=== PATIENT | female | born 1945 | race Caucasian/White ===

== ENCOUNTER → 2023-05-13 09:59 | Outpatient (REF) | payer OTHER, SELFPAY | LOC: RAD 09:59 | PROVIDERS: ATTENDING PHYSICIAN Physician Assistant; FAMILY PHYSICIAN Family Medicine | DX: R13.10 Dysphagia, unspecified (principal) | CPT/HCPCS: 74221 ==

== ENCOUNTER 2023-08-06 06:23 | Day surgery (SDC) | payer OTHER, SELFPAY ==
[2023-08-06] VITALS (7 sets, daily range): BP systolic 134–147; BP diastolic 65–102; BMI 28.9
--- NOTE | 2023-08-06 14:26 | PTCARENOTE ---
Report given to [place] MCINTOSH.
== END 2023-08-06 17:55 | disposition home or self-care (01) ==
LOC: SDS 06:23
PROVIDERS: ATTENDING PHYSICIAN Internal Medicine Gastroenterology
DX: K57.30 Diverticulosis of large intestine without perforation or abscess without bleeding (principal); Q43.8 Other specified congenital malformations of intestine; K56.2 Volvulus; K64.8 Other hemorrhoids; R19.7 Diarrhea, unspecified; Q39.9 Congenital malformation of esophagus, unspecified; K44.9 Diaphragmatic hernia without obstruction or gangrene; K31.89 Other diseases of stomach and duodenum; R13.10 Dysphagia, unspecified
CPT/HCPCS: 45380; 43239; 88305; 88342

== ENCOUNTER → 2025-01-24 13:08 | Outpatient (REF) | payer OTHER, SELFPAY | LOC: HWRAD 13:08 | PROVIDERS: ATTENDING PHYSICIAN Nurse Practitioner Adult Health | DX: M25.512 Pain in left shoulder (principal) | CPT/HCPCS: 73030 ==

== ENCOUNTER → 2025-01-30 14:22 | Outpatient (REF) | payer OTHER, SELFPAY ==
[2025-01-30 19:26] LABS: Body Fluid Second Tech FB
== END ==
LOC: CLAB 14:22
PROVIDERS: ATTENDING PHYSICIAN Student in an Organized Health Care Education/Training Program
DX: Z96.612 Presence of left artificial shoulder joint (principal)
CPT/HCPCS: 36415; 87015; 87070; 87075; 87205; 89051; 89060

== ENCOUNTER → 2025-02-02 13:58 | Outpatient (REF) | payer OTHER, SELFPAY | LOC: HWRAD 13:58 | PROVIDERS: ATTENDING PHYSICIAN Student in an Organized Health Care Education/Training Program; FAMILY PHYSICIAN Nurse Practitioner Adult Health | DX: Z96.612 Presence of left artificial shoulder joint (principal) | CPT/HCPCS: 73200 ==

== ENCOUNTER 2025-03-13 09:35 | Inpatient (IN) | payer OTHER, SELFPAY ==
--- NOTE | 2025-02-23 10:39 | CM ---
Demographics: confirmed
Living situation: lives with
Support Person Post Operatively:
History of
VN: Micha and ROLAND, not currently on service
SNF: [facility]
Outpatient: N/A
Has patient purchased required equipment: yes, patient has a walker, rollator and nocturnal oxygen ( Patient's does not know company.
PCP: [facility]
Pharmacy: [facility]
Post Operative Discharge Plan: Pending PT evaluation. Patient expressed preference for home with VN.
[2025-02-27 11:01] LABS: Hematocrit 34.3 % (37.0-47.0); Hemoglobin 11.3 g/dL (12.0-16.0); Mean Corp Hgb Conc. 32.9 g/dL (33.0-37.0); Mean Corpuscular Volume 102.4 fL (81.0-99.0); Platelet Count 291 10^3/uL (130-400); Red Cell Dist. Width 13.7 % (11.5-14.5)
[2025-02-27 11:24] LABS: Glycohemoglobin (HgbA1c) 5.6 % (4.0-5.9)
[2025-02-27 11:30] LABS: ALT (SGPT) < 10 U/L (0-35); AST (SGOT) 27 U/L (14-36); Albumin 4.4 g/dl (3.5-5.0); Alkaline Phosphatase 60 U/L (38-126); Blood Urea Nitrogen 35 mg/dl (7-17); Calcium 10.8 mg/dl (8.4-10.2); Carbon Dioxide 28 mmol/L (22-30); Chloride 100 mmol/L (98-107); Glucose 119 mg/dl (70-99); Sodium 134 mmol/L (135-145); Total Protein 6.8 g/dl (6.3-8.2); eGFR 42.09
[2025-02-27 11:36] LABS: Potassium 4.8 mmol/L (3.5-5.1)
[2025-02-27 13:23] LABS: Iron 118 ug/dl (37-170)
--- NOTE | 2025-02-27 13:31 | W.PN.UPDATE ---
Update Note
Progress Note Update
mild ALECAI on today's labs w/ reported proteinuria--Nephrology appt. made 03/06/25- aware
[2025-02-27 13:32] LABS: Total Iron Binding Capacity 394 ug/dl (265-497)
[2025-02-27 13:55] LABS: Ferritin 95.5 ng/ml (11.1-264.0)
[2025-02-27 14:10] LABS: Vitamin B12 784 pg/ml (239-931)
[2025-02-28 19:57] LABS: Vitamin D, 25-OH*** 44.9 ng/mL (30-80)
--- NOTE | 2025-03-09 15:04 | CM ---
offshore wind operations manager reached out to patient and spouse, patient is scheduled for admit morning of surgery for revision of left TSA, 03/13/25 patient and spouse report they have an old sling at home and plan on bringing it into the hospital after surgery,
patient may benefit from OT and nursing reached out to [facility].
Plan; To assist with discharge planning.
--- NOTE | 2025-03-12 09:19 | VNURNOTE ---
Addendum entered by Shanon Marquez RN 03/14/25 10:50:
PM-VN liaison met with pt at bedside. Reviewed that pt will receive HH services after DC. Reviewed that we will call her prior to visits. During encounter, patient was eating breakfast, on room air. Watned to order lunch. Call provided.
Referral accepted in [facility].
Original Note:
Chart reviewed. Rec'ed info that pt may need HH services post op. Referral placed in [facility]. Liaison will follow for final DC plan.
[2025-03-13] VITALS (10 sets, daily range): BP systolic 115–134; BP diastolic 63–79; BMI 27.1
[2025-03-13] MEDS: CELEBREX 200 MG PO (10:23)
[2025-03-13] MEDS: TYLENOL 1000 MG PO (10:23)
[2025-03-13] MEDS: NORMOSOL-R/PLASMALYTE-A 1000 IV ×2 (10:24→15:30)
--- NOTE | 2025-03-13 13:26 | W.PN.ORTHO ---
Today's Communication / Plan
-
d/c when stable
Assessment
.
Assessment:
ALECIA pre-op in setting of Meloxicam
--set up w/ nephrology pre-op
--no NSAIDs/Morrow II, renally dose all meds, adequate hydration, BP control
--BMP in am
Parkinson's/balance and gait disturbance
--fall precautions
Asthma-severe persistent
Remote tobacco
Restrictive lung disease
Chronic nocturnal hypoxemia req O2L O2 at hs
PEARSON
--incentive spirometry
--standing order nebs
--O2 at hs
--IV Decadron for inflammation and lung perfusion
--minimize opioids to avoid respiratory suppression
--abx OP Rx ppx
IBS-D
hx microscopic colitis
Anemia
--iron and B12 stores good range
--laxatives prn basis
--PPI GI ppx
--monitor hgb
Plan
.
Surgery / Date: Mechanical failure-L TSA Revision Dr Villa 03/13/25
DVT Prophylaxis: Aspirin
Activity:
Out of bed.
PT/OT
Vital Signs and Labs
.
Vital Signs and Labs:
Lab Results
02/27/25 10:27
02/27/25 10:27
Temp Pulse Resp BP Pulse Ox
97.9 F 62 16 115/65 98
03/13/25 10:12 03/13/25 10:12 03/13/25 10:12 03/13/25 10:12 03/13/25 10:12
--- NOTE | 2025-03-13 14:43 | W.DS.TRANS ---
DC Summary - Coil Winder Hand
-
Discharge Instructions:
Sleep Apnea Risk Low
Discharge Diagnosis/Procedures L reverse TSA Revision Dr Villa 03/13/25
Diet As tolerated
Activity No strenuous activity,With assistance,With
Walker
Driving Restrictions No driving
Others Tests bone density outpatient
Other Services VN,PT,OT
Instructions:
Stand-Alone Forms: Total Shoulder Replacement D/C
Changes to Home Medications: Yes
Discharge Medications:
DC Medications w/original date entered in [facility]
escitalopram oxalate 10 mg tablet 10 mg PO DAILY ##0 01/20/13
pravastatin 20 mg tablet 40 mg PO HS High cholesterol 01/31/18
icosapent ethyl 1 gram capsule (Vascepa) 2 g PO BID High cholesterol 03/15/19
albuterol sulfate 90 mcg/actuation aerosol inhaler (ProAir HFA) 2 puff inhalation R Q6HPRN PRN sob 07/21/22
omeprazole 40 mg capsule,delayed release 40 mg PO QPM Gastrointestinal issue 07/21/22
cholecalciferol (vitamin D3) 50 mcg (2,000 unit) tablet (Vitamin D3) 50 mcg PO DAILY Supplement 08/03/22
diphenoxylate-atropine 2.5 mg-0.025 mg tablet (Lomotil) 1 tab PO DAILYPRN PRN diarrhea 08/03/22
naratriptan 1 mg tablet 1 mg PO DAILYPRN PRN migraine 08/03/22
conjugated estrogens 0.625 mg/gram vaginal cream (Premarin) 0.625 mg vaginal TUFR Hormonal Agent 03/02/23
furosemide 20 mg tablet 20 mg PO DAILYPRN PRN fluid retention 03/02/23
propranolol 40 mg tablet 40 mg PO DAILY Blood pressure 03/02/23
therapeutic multivitamin 1 tab PO DAILY Supplement 03/02/23
Held on 03/13/25. Instructions: Resume on 03/21/25.
azelastine 137 mcg (0.1 %) nasal spray 1 spray intranasal BID Congestion 04/01/23
dextromethorphan-guaifenesin 10 mg-100 mg/5 mL oral syrup 10 ml PO BIDPRN PRN cough 04/01/23
budesonide 0.5 mg/2 mL suspension for nebulization 0.5 mg (2 mL) inhalation R BID Anti-inflammatory #60 mL 04/08/23
ipratropium 0.5 mg-albuterol 3 mg (2.5 mg base)/3 mL nebulization soln 3 ml inhalation R Q4HPRN PRN shortness of breath/wheezing #90 mL 04/08/23
polyethylene glycol 3350 17 gram oral powder packet (HealthyLax) 17 g PO DAILY Constipation #14 ea 04/08/23
clonazepam 0.5 mg tablet 0.5 mg PO TID Mental Health/Anxiety #20 tabs 04/09/23
DayQuil Allergy 12-HR 1 dose PO DAILY Allergies 02/23/25
Focus Factor 1 dose PO BID Supplement 02/23/25
Pepto-Bismol 1 dose PO TID PRN indigestion 02/23/25
acetaminophen-calcium carbonat 500 mg-250 mg tablet 1 - 2 tab PO DAILY PRN headache 02/23/25
benzonatate 100 mg capsule 100 mg PO TID PRN cough 02/23/25
buspirone 30 mg tablet 30 mg PO DAILY Mental Health/Anxiety 02/23/25
carbidopa ER 36.25 mg-levodopa 145 mg capsule,extended release (Rytary) 1 cap PO QID Neurological Condition 02/23/25
coenzyme Q10 100 mg capsule 100 mg PO DAILY Supplement 02/23/25
Held on 03/13/25. Instructions: Resume on 03/21/25.
cyclosporine 0.05 % eye drops in a dropperette (Restasis) 1 drp ophthalmic (eye) Q12H Eye Condition 02/23/25
doxepin 6 mg tablet 6 mg PO HS PRN sleep 02/23/25
famotidine 20 mg tablet 40 mg PO HS Gastrointestinal Issue 02/23/25
fenofibric acid (choline) 135 mg capsule,delayed release 135 mg PO DAILY High Cholesterol 02/23/25
fluticasone propionate 50 mcg/actuation nasal spray,suspension 2 spray intranasal DAILY Allergies 02/23/25
levocetirizine 5 mg tablet (Xyzal) 5 mg PO DAILY Allergies 02/23/25
magnesium glycinate 100 mg (as glycinate) tablet 400 mg PO DAILY Electrolyte Repletion 02/23/25
dexamethasone 4 mg tablet 4 mg PO BID inflammation #6 tabs 02/27/25
doxycycline hyclate 100 mg capsule 100 mg PO BID infection prevention #10 caps 02/27/25
gabapentin 300 mg capsule 300 mg PO HS sleep/pain #10 caps 02/27/25
mupirocin 2 % topical ointment 1 applic topical BID infection prevention #1 tube 02/27/25
ondansetron 4 mg disintegrating tablet 4 mg PO Q6H PRN n/v #20 tabs 02/27/25
Saccharomyces boulardii 250 mg capsule (Florastor) 250 mg PO BID #1 cap 03/13/25
aspirin 325 mg tablet 325 mg PO DAILY blood clot prevention #1 tab 03/13/25
docusate sodium 100 mg capsule (Colace) 100 mg PO BID stool softner #1 cap 03/13/25
lisinopril 10 mg tablet 5 mg (1/2 x 10 mg) PO DAILY Blood pressure #0 tabs 03/13/25
sennosides 8.6 mg tablet (Senokot) 8.6 mg PO BID PRN laxative #2 tabs 03/13/25
tramadol 50 mg tablet 50 mg PO Q6H PRN 1 tab moderate pain, 2 if severe #30 tabs 03/13/25
Home Medication Changes
dexamethasone 4 mg tablet 4 mg PO BID inflammation #6 tabs 02/27/25
doxycycline hyclate 100 mg capsule 100 mg PO BID infection prevention #10 caps 02/27/25
gabapentin 300 mg capsule 300 mg PO HS sleep/pain #10 caps 02/27/25
mupirocin 2 % topical ointment 1 applic topical BID infection prevention #1 tube 02/27/25
ondansetron 4 mg disintegrating tablet 4 mg PO Q6H PRN n/v #20 tabs 02/27/25
Saccharomyces boulardii 250 mg capsule (Florastor) 250 mg PO BID #1 cap 03/13/25
aspirin 325 mg tablet 325 mg PO DAILY blood clot prevention #1 tab 03/13/25
docusate sodium 100 mg capsule (Colace) 100 mg PO BID stool softner #1 cap 03/13/25
lisinopril 10 mg tablet 5 mg (1/2 x 10 mg) PO DAILY Blood pressure #0 tabs 03/13/25
sennosides 8.6 mg tablet (Senokot) 8.6 mg PO BID PRN laxative #2 tabs 03/13/25
tramadol 50 mg tablet 50 mg PO Q6H PRN 1 tab moderate pain, 2 if severe #30 tabs 03/13/25
Pending Results: No
[2025-03-13] MEDS: TYLENOL PO (16:00)
--- NOTE | 2025-03-13 17:00 | PTCARENOTE ---
pt admitted to 2S room 7 from the PACU at 1530. pt drowsy, easily arousable but returns to sleep. pt oriented to room, call and plan of care. admission completed from medical record,as pt unable to answer questions. telemetry placed and
reading SR 60-70's. safe environment maintained. bed locked and in low postion, call in reach. unable to stay awake to take oral medications. care ongoing.
[2025-03-13] MEDS: BUSPAR 30 MG PO (20:14)
[2025-03-13] MEDS: ZYRTEC 5 MG PO (20:14)
[2025-03-13] MEDS: PROTONIX 40 MG PO (20:16)
[2025-03-13] MEDS: ASPIRIN 325 MG PO (20:16)
[2025-03-13] MEDS: LEXAPRO 10 MG PO (20:16)
[2025-03-13] MEDS: BACTROBAN 2% OINTMENT 1 APPLIC NASAL (20:17)
[2025-03-13] MEDS: ANCEF 5 IV (20:17)
[2025-03-13] MEDS: TYLENOL 650 MG PO (20:17)
[2025-03-13] MEDS: COLACE 100 MG PO (20:17)
[2025-03-13] MEDS: MAGNESIUM OXIDE PO (20:37)
[2025-03-13] MEDS: DECADRON 4 MG IV (20:38)
[2025-03-13] MEDS: ULTRAM 100 MG PO (20:41)
--- NOTE | 2025-03-13 20:55 | PTCARENOTE ---
Upon rounds, pt wide awake eating dinner tray. at bedside. Pt upset about being placed on bedpan. Explained for safety it was the best option to try to void since so drowsy post op. Pt verbalized frustration, emotional support provided.
When finished dinner tray assisted to BSC x2. Pt already incontinent of moderate amount of urine. No void on BSC. All scheduled medications administered as pt more awake. PRN tramadol provided for 10/10 L shoulder pain. NV check WNL.
Continuous SpO2 not reading, changed to monitor on L ear, excellent pleth, SpO2 >95% on 2L. Plan of care discussed. Call ray w/in reach. Safe environment maintained.
[2025-03-13] MEDS: DUONEB 3 ML INH (21:20)
[2025-03-13] MEDS: PULMICORT 0.5 MG INH (21:20)
[2025-03-13] MEDS: PRAVACHOL 40 MG PO (22:45)
[2025-03-13] MEDS: RESTASIS 0.05% OPHTHALMIC EMULSION 1 DROPS OPHTH (22:45)
--- NOTE | 2025-03-13 23:55 | PTCARENOTE ---
Addendum entered by Dyan Riojas RN 03/14/25 04:17:
Pt SpO2 dropped to 77% (excellent pleth observed) when OOB --> BSC. Denies respiratory distress. Deep breathing encouraged, SpO2 returned to high 90s upon return to bed.
Original Note:
Pt OOB --> BSC w/assist x2. Small void, approximately 100 mL, yellow urine. PVR bladder scan = 564 mL. TREE TRIMMING LINE TECHNICIAN covering house notified and electronic orders received for bladder scan/straight cath per algorithm, and UA reflex to culture. Pt bladder
scanned using sterile technique for 600 mL clear yellow urine, tolerated well, specimen sent.
[2025-03-14] VITALS (8 sets, daily range): BP systolic 115–145; BP diastolic 63–85; PULSE 111–145; O2SAT 91–94
[2025-03-14] MEDS: TYLENOL 650 MG PO ×3 (00:11→12:07)
[2025-03-14 00:33] LABS: Urine Character Clear (Clear)
[2025-03-14 00:57] LABS: Urine Squamous Cell 0-2 /LPF (Few); Urine Urothelial Cell 0-2 /LPF (FEW)
[2025-03-14 00:58] LABS: Urine Red Blood Cell 0-2 /HPF (0-2)
[2025-03-14] MEDS: ANCEF 5 IV (04:02)
--- NOTE | 2025-03-14 04:14 | PTCARENOTE ---
Pt observed to be snoring upon hourly rounds. Brief periods of short apnea observed. Arouses to voice, appears to fall back to sleep quickly. States 'my arm hurts' but then back to snoring. No change in NV checks. SpO2 > 97% on 2L O2. Call
ray w/in reach.
[2025-03-14] MEDS: TYLENOL PO (04:20)
[2025-03-14] MEDS: ULTRAM 50 MG PO (06:31)
--- NOTE | 2025-03-14 06:35 | PTCARENOTE ---
Pt angry that is in pain (this RN in another room administering medication) Verbalizes 10/10 L shoulder pain, tearful. Went to administer ordered PRN dilaudid, pt stopped RN when stated what was to be given stating 'I can't have that, I have an
allergy'. Hydromorphone listed as allergy on pt record. Too soon for PRN tramadol 100 mg (severe pain). CONCRETE MIXER TRUCK DRIVER covering house contacted regarding situation. Instructed to give 50 mg of tramadol at this time to patient (refer to MAR).
Pt also w/no void since last straigh cathed, Bladder scanned for 404 mL. Straight cathed using sterile technique for 500 mL yellow urine, tolerated well. Call ray w/in reach. Safe environment maintained.
[2025-03-14 08:04] LABS: Blood Urea Nitrogen 20 mg/dl (7-17); Calcium 9.7 mg/dl (8.4-10.2); Carbon Dioxide 26 mmol/L (22-30); Chloride 101 mmol/L (98-107); Glucose 115 mg/dl (70-99); Potassium 4.9 mmol/L (3.5-5.1); Sodium 134 mmol/L (135-145)
[2025-03-14] MEDS: DUONEB 3 ML INH ×2 (08:09→19:09)
[2025-03-14] MEDS: PULMICORT 0.5 MG INH ×2 (08:09→19:09)
[2025-03-14 08:12] LABS: Estimated Creatinine Clearance 41 ml/min; eGFR > 60.00
[2025-03-14] MEDS: BACTROBAN 2% OINTMENT 1 APPLIC NASAL ×2 (08:49→20:28)
[2025-03-14] MEDS: BUSPAR 30 MG PO (08:50)
[2025-03-14] MEDS: ASPIRIN 325 MG PO (08:50)
[2025-03-14] MEDS: RESTASIS 0.05% OPHTHALMIC EMULSION 1 DROPS OPHTH ×2 (08:51→20:30)
[2025-03-14] MEDS: COLACE 100 MG PO ×2 (08:51→20:29)
[2025-03-14] MEDS: MIRALAX 17 GRAMS PO (08:51)
[2025-03-14] MEDS: TRICOR 48 MG PO (08:51)
[2025-03-14] MEDS: PROTONIX 40 MG PO (08:53)
[2025-03-14] MEDS: MAGNESIUM OXIDE 400 MG PO (08:54)
[2025-03-14] MEDS: DECADRON 4 MG IV ×2 (08:55→20:29)
[2025-03-14] MEDS: LEXAPRO 10 MG PO (08:55)
[2025-03-14] MEDS: ZYRTEC 5 MG PO (08:55)
[2025-03-14] MEDS: FLUSH (NSS) 2 FLUSH IV (08:56)
[2025-03-14] MEDS: FLOMAX 0.4 MG PO (09:00)
--- NOTE | 2025-03-14 09:08 | CM ---
Addendum entered by Ayanna Camejo 03/14/25 15:56:
Still waiting on determination from patient's insurance on Auth for [place] acute rehab.
Addendum entered by Ayanna Camejo 03/14/25 12:13:
Auth submitted to regional team at [facility] for Auth for acute rehab at [facility], .
Addendum entered by Ayanna Camejo 03/14/25 11:09:
fast food services manager was contacted by PT/OT and recommendation is for possible acute rehab kris'joleen cline, casework specialist met with patient and she is agreeable to [place] acute rehab and [facility] son casework specialist will send referrals to both, patient may
benefit from acute rehab at [facility], patient with Parkinson, needed to be straight cath twice for urinary retention, needs pain mgt, PT/OT.
Plan; Acute rehab at [facility] v's [facility] cline.
Original Note:
Chart reviewed and casework specialist met with patient this am and patient to return to home with spouse when stable and [facility], patient has nocturnal oxygen in home, she does not know name of supplier.
Plan; Home with spouse and [facility] when stable.
[2025-03-14] MEDS: MONUROL 3 GM PO (13:28)
--- NOTE | 2025-03-14 14:55 | W.PN.ORTHO ---
Today's Communication / Plan
-
Await urine culture results.
Continue to monitor voids.
Watch oxygen, renal function closely w/ switch in pain meds.
D/c when clinically stable.
Assessment
.
Distal Motor Intact: Yes
Dressing:
Clean, dry and intact.
Assessment:
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
DVT prophylaxis - ASA, b/l venous foot pumps
Pain control - did tolerate Tylenol with Codeine previously so will switch
- IV Morphine in replace of IV Dilaudid for breakthru pain prn d/t reported ADR
Urinary frequency and retention - likely in setting of UTI (UA + nitrates, WBCs, presence of bacteria)
- Empiric Monurol x1
- Daily Flomax. Consider BID dose
- Of note, renal function stable. Trend
- Monitor voids. Voiding small amounts of incontinent urine at present. Bladder scan/straight cath prn
ALECIA pre-op in setting of Meloxicam
-- set up w/ nephrology pre-op
-- no NSAIDs/Morrow II, renally dose all meds, adequate hydration, BP control
-- Trend BMP
Parkinson's/balance and gait disturbance
-- fall precautions
Asthma-severe/persistent
Remote tobacco
Restrictive lung disease
Chronic nocturnal hypoxemia req 2L O2 at hs and reportedly 2L during daytime prn
PEARSON
--incentive spirometry
--standing order nebs
--O2 at hs and during daytime prn
--IV Decadron for inflammation and lung perfusion
--minimize opioids as able to avoid respiratory suppression
--abx OP Rx ppx
IBS-D
hx microscopic colitis
Anemia
--iron and B12 stores good range
--laxatives prn basis
--PPI GI ppx
--non-invasive hgb 13.4 POD 1
PT/OT recommending SNF vs acute rehab. Physiatry has been consulted.
Plan
.
Surgery / Date: L Reverse TSA Revision Dr Villa 03/13/25
DVT Prophylaxis: Aspirin
Activity:
Out of bed.
PT/OT
Discharge Plan: SNF (vs rehab )
Subjective
.
.:
Patient examined resting in her chair.
Reportedly high levels of pain when asked; however, appears comfortable and sleeps if undisturbed.
Voiding small, frequent amounts of urine post-op. Bladder scans demonstrate retention. Urine culture pending.
PT/OT recommending acute rehab vs SNF
Vital Signs and Labs
.
Vital Signs and Labs:
Lab Results
02/27/25 10:27
03/14/25 07:19
Temp Pulse Resp BP Pulse Ox
98.2 F 130 18 109/58 90
03/14/25 11:15 03/14/25 13:29 03/14/25 11:15 03/14/25 13:29 03/14/25 11:15
Non-invasive Hgb result: 13.4
Physical Exam
-
HEENT: No pallor, cyanosis, or jaundice. Throat clear.
NECK: Supple. No JVD.
RESPIRATORY: Diminished breath sounds throughout.
CVS: S1, S2 normal. RRR.�
ABDOMEN: Soft, non-tender. No distension.
EXTREMITIES: Able to wiggle fingers b/l. Good loom changer/radial pulses b/l. Strength equal, no calf pain with palpation/dorsiflexion. Calves soft.
STAPLE CUTTER: AOx3. No focal deficits. shank maker grossly intact
[2025-03-14] MEDS: NON-FORMULARY ITEM PO ×4 (16:29→16:30)
[2025-03-14] MEDS: NON-FORMULARY ITEM 1 CAP PO ×3 (16:30→22:20)
[2025-03-14] MEDS: TYLENOL #3 2 TABLET PO (16:31)
--- NOTE | 2025-03-14 21:00 | PTCARENOTE ---
Pt ST via telemetry. 110s up to 130s with activity. Reports palpitations. Daily dose of propanolol not administered 2/2 SBP did not meet parameters. NURSING PROGRAM DIRECTOR covering house contacted, made aware of HR and pt complaint. No new orders received at
this time.
[2025-03-14] MEDS: PEPCID 20 MG PO (22:20)
[2025-03-14] MEDS: PRAVACHOL 40 MG PO (22:20)
--- NOTE | 2025-03-14 22:40 | PTCARENOTE ---
Pt expressed urge to void. Assisted to BSC x1, unsteady. Unable to void. Bladder scanned for 641 mL. COMBINATION WELDER APPRENTICE covering contacted regarding ongoing need for intermittent straight cath. Electronic orders received to place camarillo catheter. 14F [place]
placed using sterile technique, pt tolerated well. Immediate return of clear yellow urine. Stat lock in place.
[2025-03-15] VITALS (8 sets, daily range): BP systolic 123–159; BP diastolic 69–88; PULSE 116; O2SAT 96
[2025-03-15] MEDS: TYLENOL #3 2 TABLET PO ×2 (04:42→14:26)
[2025-03-15] MEDS: PULMICORT 0.5 MG INH ×2 (07:50→19:18)
[2025-03-15] MEDS: DUONEB 3 ML INH ×2 (07:50→19:19)
--- NOTE | 2025-03-15 08:33 | CM ---
Call placed to insurance to check on approval, no Auth yet for acute rehab at [facility].
Plan; To follow up with patient's insurance for acute for acute rehab.
[2025-03-15] MEDS: LEXAPRO 10 MG PO (09:46)
[2025-03-15] MEDS: BUSPAR 30 MG PO (09:46)
[2025-03-15] MEDS: FLOMAX 0.4 MG PO (09:52)
[2025-03-15] MEDS: ASPIRIN 325 MG PO (09:52)
[2025-03-15] MEDS: COLACE 100 MG PO ×2 (09:52→20:10)
[2025-03-15] MEDS: RESTASIS 0.05% OPHTHALMIC EMULSION 1 DROPS OPHTH ×2 (09:52→20:15)
[2025-03-15] MEDS: MIRALAX 17 GRAMS PO (09:52)
[2025-03-15] MEDS: ZYRTEC 5 MG PO (09:53)
[2025-03-15] MEDS: NON-FORMULARY ITEM 1 CAP PO ×5 (09:53→21:58)
[2025-03-15] MEDS: PROTONIX 40 MG PO (09:53)
[2025-03-15] MEDS: DECADRON 4 MG IV ×2 (09:54→20:15)
[2025-03-15] MEDS: TRICOR 48 MG PO (09:54)
[2025-03-15] MEDS: MAGNESIUM OXIDE 400 MG PO (09:54)
[2025-03-15] MEDS: LASIX 10 MG IV ×2 (16:21→18:36)
--- NOTE | 2025-03-15 16:39 | W.PN.ORTHO ---
Today's Communication / Plan
-
d/c when stable
Assessment
.
Distal Motor Intact: Yes
Dressing:
Clean, dry and intact.
Assessment:
SOB w/ tachypnea and tachycardia this am POD#2--chest discomfort on inspiration+intense calf pain w/ palpation
--CT/PE chest and venous duplex negative for clot
--tachycardia most likely exacerbated by nebs-d/c propanolol given asthma and change to Diltiazem
--atelectasis and possible infiltrate noted on CT-continue incentive and abx ppx
--EKG w/ possible anterior infarct vs possible breast attenuation
--troponin 0.032 mildly elevated-repeat q6h
--currently breathing improved with lung expansion/sitting in [id number] baseline on 2L O2 sats 97%
--BNP trending slightly higher then her typical range-change home Lasix to 20mg IV dosing and continue Midodrine to avoid orthostasis
--discussed with cardiology -EKG at baseline with poor R wave progression
--troponin mild elevation not of concern and historically trends higher in setting of asthma exacerbation
Asthma-severe persistent
Remote tobacco
Restrictive lung disease
Chronic nocturnal hypoxemia req O2L O2 at hs
PEARSON
--incentive spirometry
--standing order nebs
--O2 at hs
--IV Decadron for inflammation and lung perfusion
--minimize opioids to avoid respiratory suppression
--abx OP Rx ppx
Hyponatremia
---Lasix + fluid restrict-check urine sodium/osmolality--BMP in am
ALECIA pre-op in setting of Meloxicam
--set up w/ nephrology pre-op
--no NSAIDs/Morrow II, renally dose all meds, adequate hydration, BP control
--BMP in am
Parkinson's/balance and gait disturbance
--fall precautions
IBS-D
hx microscopic colitis
Anemia
--iron and B12 stores good range
--laxatives prn basis
--PPI GI ppx
--monitor hgb
Plan
.
Surgery / Date: L Reverse TSA Revision Dr Villa 03/13/25
DVT Prophylaxis: Aspirin
Activity:
Out of bed.
PT/OT
Discharge Plan: Rehab
Subjective
.
.:
Patient resting comfortably.
Vital Signs and Labs
.
Vital Signs and Labs:
Lab Results
02/27/25 10:27
Temp Pulse Resp BP Pulse Ox
97.7 F 112 18 141/83 97
03/15/25 15:50 03/15/25 14:31 03/15/25 14:31 03/15/25 14:31 03/15/25 14:31
Non-invasive Hgb result: 9.2
Physical Exam
-
HEENT: No pallor, cyanosis, or jaundice. Throat clear.
NECK: Supple. No JVD.
RESPIRATORY: tachypneic Lungs clear to auscultation.
CVS: S1, S2 normal. RRR.� No murmur, rub or gallop.
ABDOMEN: Soft, non-tender. No distension. BS+/normal.
EXTREMITIES: strength equal, no calf pain with palpation
IMAGING ASSISTANT: AOx3. No focal deficits. patch machine operator grossly intact
[2025-03-15 17:06] LABS: Troponin I 0.032 ng/ml
[2025-03-15 17:15] LABS: ALT (SGPT) < 10 U/L (0-35); AST (SGOT) 26 U/L (14-36); Albumin 3.6 g/dl (3.5-5.0); Alkaline Phosphatase 64 U/L (38-126); Blood Urea Nitrogen 24 mg/dl (7-17); Calcium 9.2 mg/dl (8.4-10.2); Carbon Dioxide 26 mmol/L (22-30); Chloride 96 mmol/L (98-107); Estimated Creatinine Clearance 41 ml/min; Glucose 142 mg/dl (70-99); Potassium 4.8 mmol/L (3.5-5.1); Sodium 129 mmol/L (135-145); Total Protein 5.9 g/dl (6.3-8.2); eGFR > 60.00
[2025-03-15] MEDS: SENOKOT 8.6 MG PO (20:12)
[2025-03-15] MEDS: ULTRAM 50 MG PO (21:57)
[2025-03-15] MEDS: NON-FORMULARY ITEM 1 MG PO (21:59)
[2025-03-15] MEDS: PEPCID 20 MG PO (21:59)
[2025-03-15] MEDS: CARDIZEM 30 MG PO (22:00)
[2025-03-15] MEDS: PRAVACHOL 40 MG PO (22:02)
[2025-03-15] MEDS: ROBITUSSIN AC PO (23:07)
[2025-03-16] VITALS (8 sets, daily range): BP systolic 111–164; BP diastolic 66–86; O2SAT 94
[2025-03-16 00:47] LABS: Troponin I 0.039 ng/ml
[2025-03-16] MEDS: TESSALON PERLES 100 MG PO (00:59)
[2025-03-16] MEDS: ULTRAM 50 MG PO ×3 (03:37→19:48)
[2025-03-16 06:48] LABS: Hematocrit 23.3 % (37.0-47.0); Hemoglobin 8.1 g/dL (12.0-16.0); Mean Corp Hgb Conc. 34.8 g/dL (33.0-37.0); Mean Corpuscular Volume 97.5 fL (81.0-99.0); Nucleated Red Blood Cells % 0 %; Platelet Count 240 10^3/uL (130-400); Red Cell Dist. Width 14.4 % (11.5-14.5)
[2025-03-16 06:58] LABS: Troponin I 0.034 ng/ml
[2025-03-16 07:10] LABS: Blood Urea Nitrogen 24 mg/dl (7-17); Calcium 10.0 mg/dl (8.4-10.2); Carbon Dioxide 30 mmol/L (22-30); Chloride 97 mmol/L (98-107); Estimated Creatinine Clearance 53 ml/min; Glucose 102 mg/dl (70-99); Potassium 4.5 mmol/L (3.5-5.1); Sodium 132 mmol/L (135-145); eGFR > 60.00
[2025-03-16] MEDS: PULMICORT 0.5 MG INH (08:10)
[2025-03-16] MEDS: DUONEB 3 ML INH (08:10)
[2025-03-16] MEDS: MIRALAX 17 GRAMS PO (08:33)
[2025-03-16] MEDS: ASPIRIN 325 MG PO (08:45)
[2025-03-16] MEDS: TRICOR 48 MG PO (08:46)
[2025-03-16] MEDS: ROBITUSSIN AC 5 ML PO ×3 (08:46→23:27)
[2025-03-16] MEDS: RESTASIS 0.05% OPHTHALMIC EMULSION 1 DROPS OPHTH ×2 (08:46→19:49)
[2025-03-16] MEDS: PROTONIX 40 MG PO (08:46)
[2025-03-16] MEDS: LEXAPRO 10 MG PO (08:47)
[2025-03-16] MEDS: BUSPAR 30 MG PO (08:47)
[2025-03-16] MEDS: ZYRTEC 5 MG PO (08:47)
[2025-03-16] MEDS: COLACE 100 MG PO ×2 (08:47→19:48)
[2025-03-16] MEDS: MAGNESIUM OXIDE 400 MG PO (08:47)
[2025-03-16] MEDS: FLOMAX 0.4 MG PO (08:48)
[2025-03-16] MEDS: LASIX 20 MG IV ×2 (08:49→23:27)
[2025-03-16] MEDS: DECADRON 4 MG IV ×2 (08:49→19:49)
[2025-03-16] MEDS: CARDIZEM 30 MG PO ×2 (08:50→19:48)
[2025-03-16] MEDS: NON-FORMULARY ITEM 1 CAP PO ×4 (08:51→23:29)
--- NOTE | 2025-03-16 09:07 | CM ---
Addendum entered by Ayanna Camejo 03/16/25 14:27:
Patient has been approved for 7 days acute rehab, 03/26/25 to 03/23/25, patient is not stable today per physician. Auth [id number]
Addendum entered by Ayanna Camejo 03/16/25 09:23:
Referrals sent to [facility], [facility] and [facility] as back up plan.
Addendum entered by Ayanna Camejo 03/16/25 09:18:
advertising traffic manager reached out to [facility] at [place] and per admissions patient progress is slow and patient would do better at skilled facility will review with team.
Original Note:
Call placed to patient's insurance and social work case manager spoke with Debbie Jacinto at [facility], pending authorization number is [id number], call ref # [id number], social work case manager requested that Regional Team at [employer], expedite Auth
as patient is stable for discharge.
Plan; [facility]ing on Author[facility].
[2025-03-16] MEDS: MILK OF MAGNESIA 30 ML PO (11:57)
--- NOTE | 2025-03-16 14:50 | W.PN.ORTHO ---
Today's Communication / Plan
-
d/c when stable
Assessment
.
Distal Motor Intact: Yes
Dressing:
Clean, dry and intact.
Assessment:
POD#3--Aspiration and cough w/ RLL rhonchi and CT ? PNA--aspiration precautions w/ Fees swallow study ordered and speech consult--continue PPI and tx w/ Zosyn
SOB w/ tachypnea and tachycardia am POD#2--chest discomfort on inspiration+intense calf pain w/ palpation--resolved
--CT/PE chest and venous duplex negative for clot
--tachycardia most likely exacerbated by nebs-d/c propanolol given asthma and change to Diltiazem
--EKG w/ possible anterior infarct reviewed Dr Hernandez-cardiology and at baseline with poor R wave progression
--troponin mildly elevated-repeated q4l-bjixfmpzp trends higher in setting of asthma exacerbation-no CP
--BNP trending slightly higher then her typical range-change home Lasix to 20mg IV dosing and continue Midodrine to avoid orthostasis
Asthma-severe persistent
Remote tobacco
Restrictive lung disease
Chronic nocturnal hypoxemia req O2L O2 at hs
PEARSON
--incentive spirometry
--standing order nebs
--O2 at hs
--IV Decadron for inflammation and lung perfusion
--minimize opioids to avoid respiratory suppression
--abx OP Rx ppx
Anemia
--iron and B12 stores good range
--significant drop in hgb
--transfuse 1UPRBCs-heme test stool given colitis
IBS-D
hx microscopic colitis
GERD
--laxatives prn basis
--PPI GI ppx
Hyponatremia
---Lasix + fluid restrict-check urine sodium/osmolality--BMP in am-sodium improving
Hx ALECIA pre-op in setting of Meloxicam
--set up w/ nephrology pre-op
--no NSAIDs/Morrow II, renally dose all meds, adequate hydration, BP control
--follow BMP
Parkinson's/balance and gait disturbance
--fall precautions
Plan
.
Surgery / Date: L Reverse TSA Revision Dr Villa 03/13/25
DVT Prophylaxis: Aspirin
Activity:
Out of bed.
PT/OT
Discharge Plan: Rehab and SNF
Discharge Information:
Acute rehab/[facility] vs SNF
Subjective
.
.:
Patient resting comfortably.
Vital Signs and Labs
.
Vital Signs and Labs:
Lab Results
03/16/25 06:22
03/16/25 06:22
Temp Pulse Resp BP Pulse Ox
98.2 F 94 20 118/66 93
03/16/25 11:58 03/16/25 12:06 03/16/25 11:58 03/16/25 12:06 03/16/25 12:12
Non-invasive Hgb result: 9.2
Physical Exam
-
HEENT: No pallor, cyanosis, or jaundice. Throat clear.
NECK: Supple. No JVD.
RESPIRATORY: RLL rhonchi
CVS: S1, S2 normal. RRR.� No murmur, rub or gallop.
ABDOMEN: Soft, non-tender. No distension. BS+/normal.
EXTREMITIES: strength equal, no calf pain with palpation
PLASMA CUTTING MACHINE OPERATOR: AOx3. No focal deficits. coil connector repairer grossly intact
[2025-03-16] MEDS: ZOSYN 50 IV ×2 (16:07→23:30)
--- NOTE | 2025-03-16 16:09 | CON.HOSP ---
Consultation
-
Date/Time Consultation Requested: March 15, 2025 @ 1600
Date/Time Consultation Performed: March 15, 2025 @ 1615
Requesting Provider: Marium Cook PA-C
Performing Provider: Fatimah Madrid PA-C / Dr. Abimael Gamez
Reason for Consultation: Post-Op Medical Management
Family Physician
-
Family Physician: RICK Guerin
Chief Complaint
-
Medical Management
History of Present Illness
Patient is 79 y/o female past medical history of Parkinson disease, chronic nocturnal hypoxia, asthma, restrictive lung disease, hypertension, seizure disorder and anxiety who was seen on POD #3 following a revision of previous left shoulder
replacement. Thus far during this hospitalization patient has been started on empiric antibiotics following a episode of aspiration. She has also significant dropped her Hgb for which she is ordered one unit of PRBCs, and has been started on a
fluid restriction for hyponatremia. Hospitalist group was asked to evaluation the patient for continued post-op medical management.
Medical History
Past Medical History
Past Medical History: Reports Other
Additional Past Medical History:
Parkinson's Disease
Chronic Nocturnal Hypoxia
Asthma
Restrictive Lung Disease
Essential Hypertension
Hyperlipidemia
Seizure Disorder
Anxiety/Depression
Past Surgical History: Reports Other
Additional Past Surgical History:
Bilateral Shoulder Replacements
Bilateral Knee Replacements
Cholecystectomy
Section
Social History
Tobacco: Former Smoker
Alcohol: Occasional
Family History
Family History: Reviewed & Not Pertinent
Allergies / Home Medications
Allergies reflects when Allergies were last updated in [facility].
Home Medications with original date entered in [facility] [facility]
Allergy/Medication List:
Allergies
Allergy/AdvReac Type Severity Reaction Status Date / Time
house dust Allergy increases Verified 03/13/25 09:51
asthma
symptoms
hydromorphone Allergy swelling Verified 03/13/25 09:51
and itching
pollen extracts Allergy stuffy Verified 03/13/25 09:51
nose,cough,triggers
asthma
pseudoephedrine HCl (From Allergy hyperactive, Verified 03/13/25 09:51
Sudafed) palpitations
Home Medications
escitalopram oxalate 10 mg tablet 10 mg PO DAILY ##0 01/20/13
pravastatin 20 mg tablet 40 mg PO HS High cholesterol 01/31/18
icosapent ethyl 1 gram capsule (Vascepa) 2 g PO BID High cholesterol 03/15/19
albuterol sulfate 90 mcg/actuation aerosol inhaler (ProAir HFA) 2 puff inhalation R Q6HPRN PRN sob 07/21/22
omeprazole 40 mg capsule,delayed release 40 mg PO QPM Gastrointestinal issue 07/21/22
cholecalciferol (vitamin D3) 50 mcg (2,000 unit) tablet (Vitamin D3) 50 mcg PO DAILY Supplement 08/03/22
diphenoxylate-atropine 2.5 mg-0.025 mg tablet (Lomotil) 1 tab PO DAILYPRN PRN diarrhea 08/03/22
naratriptan 1 mg tablet 1 mg PO DAILYPRN PRN migraine 08/03/22
conjugated estrogens 0.625 mg/gram vaginal cream (Premarin) 0.625 mg vaginal TUFR Hormonal Agent 03/02/23
furosemide 20 mg tablet 20 mg PO DAILYPRN PRN fluid retention 03/02/23
propranolol 40 mg tablet 40 mg PO DAILY Blood pressure 03/02/23
therapeutic multivitamin 1 tab PO DAILY Supplement 03/02/23
Held on 03/13/25. Instructions: Resume on 03/21/25.
azelastine 137 mcg (0.1 %) nasal spray 1 spray intranasal BID Congestion 04/01/23
dextromethorphan-guaifenesin 10 mg-100 mg/5 mL oral syrup 10 ml PO BIDPRN PRN cough 04/01/23
budesonide 0.5 mg/2 mL suspension for nebulization 0.5 mg (2 mL) inhalation R BID Anti-inflammatory #60 mL 04/08/23
ipratropium 0.5 mg-albuterol 3 mg (2.5 mg base)/3 mL nebulization soln 3 ml inhalation R Q4HPRN PRN shortness of breath/wheezing #90 mL 04/08/23
polyethylene glycol 3350 17 gram oral powder packet (HealthyLax) 17 g PO DAILY Constipation #14 ea 04/08/23
clonazepam 0.5 mg tablet 0.5 mg PO TID Mental Health/Anxiety #20 tabs 04/09/23
DayQuil Allergy 12-HR 1 dose PO DAILY Allergies 02/23/25
Focus Factor 1 dose PO BID Supplement 02/23/25
Pepto-Bismol 1 dose PO TID PRN indigestion 02/23/25
acetaminophen-calcium carbonat 500 mg-250 mg tablet 1 - 2 tab PO DAILY PRN headache 02/23/25
benzonatate 100 mg capsule 100 mg PO TID PRN cough 02/23/25
buspirone 30 mg tablet 30 mg PO DAILY Mental Health/Anxiety 02/23/25
carbidopa ER 36.25 mg-levodopa 145 mg capsule,extended release (Rytary) 1 cap PO QID Neurological Condition 02/23/25
coenzyme Q10 100 mg capsule 100 mg PO DAILY Supplement 02/23/25
Held on 03/13/25. Instructions: Resume on 03/21/25.
cyclosporine 0.05 % eye drops in a dropperette (Restasis) 1 drp ophthalmic (eye) Q12H Eye Condition 02/23/25
doxepin 6 mg tablet 6 mg PO HS PRN sleep 02/23/25
famotidine 20 mg tablet 40 mg PO HS Gastrointestinal Issue 02/23/25
fenofibric acid (choline) 135 mg capsule,delayed release 135 mg PO DAILY High Cholesterol 02/23/25
fluticasone propionate 50 mcg/actuation nasal spray,suspension 2 spray intranasal DAILY Allergies 02/23/25
levocetirizine 5 mg tablet (Xyzal) 5 mg PO DAILY Allergies 02/23/25
magnesium glycinate 100 mg (as glycinate) tablet 400 mg PO DAILY Electrolyte Repletion 02/23/25
dexamethasone 4 mg tablet 4 mg PO BID inflammation #6 tabs 02/27/25
doxycycline hyclate 100 mg capsule 100 mg PO BID infection prevention #10 caps 02/27/25
gabapentin 300 mg capsule 300 mg PO HS sleep/pain #10 caps 02/27/25
mupirocin 2 % topical ointment 1 applic topical BID infection prevention #1 tube 02/27/25
ondansetron 4 mg disintegrating tablet 4 mg PO Q6H PRN n/v #20 tabs 02/27/25
Saccharomyces boulardii 250 mg capsule (Florastor) 250 mg PO BID #1 cap 03/13/25
aspirin 325 mg tablet 325 mg PO DAILY blood clot prevention #1 tab 03/13/25
docusate sodium 100 mg capsule (Colace) 100 mg PO BID stool softner #1 cap 03/13/25
lisinopril 10 mg tablet 5 mg (1/2 x 10 mg) PO DAILY Blood pressure #0 tabs 03/13/25
sennosides 8.6 mg tablet (Senokot) 8.6 mg PO BID PRN laxative #2 tabs 03/13/25
tramadol 50 mg tablet 50 mg PO Q6H PRN 1 tab moderate pain, 2 if severe #30 tabs 03/13/25
Review of Systems
-
History Source: Patient
Constitutional: Denies Fever
Respiratory: Reports Cough
Cardiac: Denies Chest Pain
Abdomen/GI: Reports Constipated
Physical Exam
Vital Signs
Vital Signs
Temp Pulse Resp BP Pulse Ox
98.4 F 108 16 144/81 96
03/16/25 15:36 03/16/25 15:36 03/16/25 15:36 03/16/25 15:36 03/16/25 15:36
Physical Exam
General: Well Developed and Well Nourished
HEENT: Anicteric, Moist Mucous Membranes and Oxygen (Nasal Cannula)
Respiratory: Rales (Bilateral bases, slightly greater on right compared to left)
Cardiac: S1/S2 and Regular Rhythm
GI: Soft and Non Tender
Musculoskeletal: No Clubbing and No Edema
Skin: Warm and Dry
Neuro: Awake, Alert and Oriented
Psych: Calm
Laboratory Results
-
Laboratory Results
03/16/25 06:22
03/16/25 06:22
Total Bilirubin 0.2 mg/dl (0.2-1.3) 03/15/25 16:37
AST 26 U/L (14-36) 03/15/25 16:37
ALT < 10 U/L (0-35) 03/15/25 16:37
Alkaline Phosphatase 64 U/L (38-126) 03/15/25 16:37
Troponin I 0.034 ng/ml 03/16/25 06:22
Data Reviewed
-
Lab Data: Labs Reviewed
Impression / Plan
-
Acute Post-Op Blood Loss Anemia
-Check iron, ferritin, TIBC, folate, Vit B12
-Transfuse 1 unit PRBCs today
-Recheck Hgb in AM
Hyponatremia
-Sodium level is trending upwards
-Continue fluid restriction
-Continue furosemide
Aspiration Pneumonia
-Continue Zosyn
-Await speech consult
Post-Op Urinary Retention
-Vasquez catheter placed 03/14
-Voiding trial scheduled for 03/17
-Continue tamsulosin
Revision of Left Shoulder Replacement
-Care as per orthopedics
Parkinson's Disease
-Continue carbidopa / levodopa
Chronic Nocturnal Hypoxia
-Continue supplemental oxygen
Asthma / Restrictive Lung Disease
-Continue ipratropium/albuterol neb and Pulmicort neb
Essential Hypertension
-Continue diltiazem
Anxiety/Depression with Benzodiazepine Dependence
-Continue buspirone, escitalopram and doxepin
-Continue clonazepam as prior to admission
DVT Proph: Aspirin
--- NOTE | 2025-03-16 16:49 | VATNOTE ---
no need for midline at this time. One new line placed; coordinated with Kathie MCKEON.
--- NOTE | 2025-03-16 16:52 | W.PN.UPDATE ---
Update Note
Progress Note Update
Attending note.
Patient seen independently
79 y/o woman with a past medical history of:
Parkinson disease,
chronic nocturnal hypoxia,
asthma,
restrictive lung disease,
hypertension,
seizure disorder
anxiety
on POD #3 following a revision of previous left shoulder replacement. Started on empiric antibiotics following a episode of aspiration. Significant dropped her Hgb for which she is ordered one unit of PRBCs. Fluid restriction for hyponatremia.
Hospitalist group was asked to evaluation the patient for continued post-op medical management.
Past Medical History
Parkinson's Disease
Chronic Nocturnal Hypoxia
Asthma
Restrictive Lung Disease
Essential Hypertension
Hyperlipidemia
Seizure Disorder
Anxiety/Depression
Bilateral Shoulder Replacements
Bilateral Knee Replacements
Cholecystectomy
Section
Physical Exam
General: Well Developed and Well Nourished
HEENT: Moist Mucous Membranes on Oxygen (Nasal Cannula)
Respiratory: Rales
Cardiac: S1/S2 and Regular Rhythm
GI: Soft and Non Tender
Neuro: Awake, Alert and Oriented
Psych: Calm
Impression / Plan
1. Acute Post-Op Blood Loss Anemia
-Check iron, ferritin, TIBC, folate, Vit B12
-in process - Transfuse 1 unit PRBCs today
-Recheck Hgb in AM
2. Aspiration Pneumonia
-Continue Zosyn
-Await speech consult
Please see PA note for further details on:
Hyponatremia
Post-Op Urinary Retention
Revision of Left Shoulder Replacement
Parkinson's Disease
Chronic Nocturnal Hypoxia
Asthma / Restrictive Lung Disease
Essential Hypertension
Anxiety/Depression with Benzodiazepine Dependence
DVT Proph: Aspirin
[2025-03-16] MEDS: NON-FORMULARY ITEM PO (17:23)
[2025-03-16 18:02] LABS: Iron 48 ug/dl (37-170)
[2025-03-16 18:11] LABS: Total Iron Binding Capacity 294 ug/dl (265-497)
[2025-03-16 18:43] LABS: Ferritin 83.4 ng/ml (11.1-264.0)
[2025-03-16 18:57] LABS: Vitamin B12 786 pg/ml (239-931)
[2025-03-16 19:30] LABS: Folate 9.1 ng/ml (2.76-20)
[2025-03-16] MEDS: DUONEB INH (20:41)
[2025-03-16] MEDS: PULMICORT INH (20:42)
--- NOTE | 2025-03-16 23:00 | PTCARENOTE ---
Pt tolerated blood transfusion without complications, VSS
[2025-03-16] MEDS: PRAVACHOL 40 MG PO (23:28)
[2025-03-16] MEDS: PEPCID 20 MG PO (23:28)
[2025-03-17 03:05] VITALS: BP 154/95
[2025-03-17] MEDS: ULTRAM 50 MG PO ×4 (03:21→21:45)
[2025-03-17] MEDS: ZOSYN 50 IV ×4 (04:59→21:46)
[2025-03-17 07:05] VITALS: BP 151/92
[2025-03-17 07:31] LABS: Blood Urea Nitrogen 36 mg/dl (7-17); Calcium 10.1 mg/dl (8.4-10.2); Carbon Dioxide 33 mmol/L (22-30); Chloride 90 mmol/L (98-107); Estimated Creatinine Clearance 41 ml/min; Glucose 132 mg/dl (70-99); Potassium 4.5 mmol/L (3.5-5.1); Sodium 131 mmol/L (135-145); eGFR > 60.00
[2025-03-17 07:34] LABS: Hematocrit 30.3 % (37.0-47.0); Hemoglobin 10.5 g/dL (12.0-16.0); Mean Corp Hgb Conc. 34.7 g/dL (33.0-37.0); Mean Corpuscular Volume 95.6 fL (81.0-99.0); Nucleated Red Blood Cells % 0 %; Platelet Count 309 10^3/uL (130-400); Red Cell Dist. Width 15.1 % (11.5-14.5)
[2025-03-17] MEDS: PULMICORT 0.5 MG INH ×2 (07:36→18:02)
[2025-03-17] MEDS: DUONEB 3 ML INH ×2 (07:36→18:02)
[2025-03-17] MEDS: ROBITUSSIN AC 5 ML PO ×3 (09:33→21:45)
[2025-03-17] MEDS: TESSALON PERLES 100 MG PO (09:34)
[2025-03-17] MEDS: RESTASIS 0.05% OPHTHALMIC EMULSION 1 DROPS OPHTH ×2 (09:35→21:45)
[2025-03-17] MEDS: BUSPAR 30 MG PO (09:36)
[2025-03-17] MEDS: ASPIRIN 325 MG PO (09:36)
[2025-03-17] MEDS: CARDIZEM 30 MG PO (09:36)
[2025-03-17] MEDS: ZYRTEC 5 MG PO (09:36)
[2025-03-17] MEDS: PROTONIX 40 MG PO (09:36)
[2025-03-17] MEDS: FLOMAX 0.4 MG PO (09:36)
[2025-03-17] MEDS: COLACE 100 MG PO ×2 (09:36→21:45)
[2025-03-17] MEDS: TRICOR 48 MG PO (09:36)
[2025-03-17] MEDS: DECADRON 4 MG IV (09:38)
[2025-03-17] MEDS: LASIX 20 MG IV (09:39)
[2025-03-17] MEDS: NON-FORMULARY ITEM 1 CAP PO ×5 (09:39→21:47)
[2025-03-17] MEDS: LEXAPRO 10 MG PO (09:41)
[2025-03-17] MEDS: MIRALAX 17 GRAMS PO (09:41)
[2025-03-17] MEDS: MAGNESIUM OXIDE 400 MG PO (09:41)
[2025-03-17 11:05] VITALS: BP 116/77
--- NOTE | 2025-03-17 13:26 | W.PN.HOSP.TC ---
Today's Communication/Plan
-
Assessment / Plan
Assessment / Plan
General: No Apparent Distress, Comfortable and Conversant
HEENT: NormoCephalic, Moist mucous membranes, Atraumatic
Respiratory: Clear and Non Labored Respirations
Cardiac: S1/S2 and Regular Rhythm; No Rub or Gallop
GI: Soft, Non Tender, Non Distended and Normal Bowel Sounds
Musculoskeletal: Mild lower extremity edema, left upper extremity in sling
Skin: Chronic skin changes bilateral lower extremities
: NO Vasquez
Neuro: Awake, Alert, Nonfocal/grossly intact
Psych: Calm and cooperative
Ms. Ewing is a 79-year-old female with a medical history of Parkinson's disease, chronic nocturnal hypoxia, asthma, restrictive lung disease, hypertension, seizure disorder, and anxiety who was hospitalized following revision of her left shoulder
replacement. She was started on antibiotics following an aspiration event. She also had a significant drop in her hemoglobin for which she was transfused 1 unit PRBCs. She was also started on a fluid restriction for hyponatremia. Our hospitalist
service was consulted for medical management during her postoperative care.
Postoperative acute blood loss anemia:
- Hemoglobin dropped to 8.1, was transfused 1 unit PRBCs => hemoglobin 10.5 this morning
- Monitor
Hypertension:
- According to med rec patient takes lisinopril 5 mg daily and propranolol 40 mg daily at home
- Currently holding lisinopril and propranolol due to borderline hypotension
- Unclear why she has been started on diltiazem which can also lower blood pressure
- Appears to have been started on midodrine during this admission which we will continue for now
- Diltiazem discontinued, also transitioned IV Lasix back to oral 20 mg daily for now (Lasix 20 mg every 48 hours or as needed at home)
- Will monitor blood pressure over the next 24 hours and adjust regimen as needed
Aspiration pneumonia:
- CT chest shows possible left lower lobe pneumonia, negative for PE
- Requiring minimal supplemental oxygen, 2 L at most otherwise on room air
- Continue Zosyn
- Aspiration precautions
- [employer] evaluation showing mild oropharyngeal dysphagia likely related to Parkinson's disease
- Recommendations are for regular solids, thin liquids via single sips with chin tuck, medications in pur�e
Acute urinary retention:
- Vasquez removed this morning 03/17
- Will monitor for spontaneous voiding
Hyponatremia:
- Mild with serum sodium 131 this morning, appears chronic per records
- Likely due to Lasix use, possibly side effect of escitalopram which should not be discontinued for mild hyponatremia alone
- Continue fluid restriction, convert Lasix back to home dose of 20 mg p.o. every 48 hours
- Baseline serum sodium appears to be 130-134
- Monitor
Parkinson's disease:
- Continue Sinemet
Chronic nocturnal hypoxia:
- Continue supplemental oxygen via nasal cannula at night/as needed
Asthma, restrictive lung disease:
- Continue scheduled nebulizers
Left shoulder replacement revision:
- Status post OR with Ortho 03/13/2025 reverse total shoulder arthroplasty, tolerated procedure well
- Postoperative care per Ortho team
- On full-strength aspirin daily
Anxiety and depression:
- Continue home buspirone, escitalopram, doxepin, and clonazepam
DVT prophylaxis: Full-strength aspirin per Ortho
Anticipated Discharge: > 48 hours
Subjective/Interval History
-
Date of Service: March 17, 2025
Patient was seen and examined at bedside this morning. No acute events overnight. Hemoglobin improved to 10.5 after 1 unit PRBCs. She is motivated to continue working with physical therapy.
Objective Data
-
Labs:
Laboratory Results
03/17/25
06:10
WBC 9.0
Hgb 10.5 L D
Hct 30.3 L
Plt Count 309 D
Sodium 131 L
Potassium 4.5
Chloride 90 L
Carbon Dioxide 33 H
BUN 36 H
Creatinine 0.9
Glucose 132 H
Calcium 10.1
Vital Signs:
Vital Signs
Temp Pulse Resp BP Pulse Ox
98.6 F 104 16 116/77 99
03/17/25 11:05 03/17/25 11:05 03/17/25 11:05 03/17/25 11:05 03/17/25 11:05
I&O
03/16/25 03/17/25 03/18/25
06:59 06:59 06:59
Intake Total 1070 / 1070 750 / 750
Output Total 2950 / 2950 3450 / 3450
Balance -1880 / -1880 -2700 / -2700
Review of Systems
-
History Source: Patient
All other systems: Reviewed and negative
Physical Exam
-
General: No Apparent Distress
--- NOTE | 2025-03-17 14:55 | W.PN.ORTHO ---
Today's Communication / Plan
-
79F POD #4 Left shoulder revision RTSA (humeral and glenoid components) performed on 03/13/[address] Villa.
- Appreciate medical team assistance with patient; continue treatment.
- NWB LUE in sling x 4-6 weeks from DOS.
- PT/OT.
- ASA 325mg once daily x 4 weeks for DVT prophylaxis.
- Hgb 8.1 --> 10.5 s/p 1 unit PRBC; continue to monitor.
- Discharge planning; appreciate CM.
- Orthopedic surgery will continue to follow.
Assessment
.
Distal Motor Intact: Yes
Dressing:
Primaseal dressing intact with scant dried bloody drainage.
Elbow, wrist, and hand ROM intact. Shoulder ROM deferred.
Sensation is intact to light touch over the axillary nerve distribution.
Assessment:
POD #4 Left Reverse TSA Revision 03/13/[address] Villa
Plan
.
Surgery / Date: L Reverse TSA Revision Dr Villa 03/13/25
DVT Prophylaxis: Aspirin
Activity:
Out of bed.
PT/OT.
NWB LUE in sling.
Discharge Plan: Rehab and SNF
Discharge Information:
Appreciate CM.
Acute rehab/[facility] vs SNF.
Subjective
.
.:
Patient resting comfortably.
Vital Signs and Labs
.
Vital Signs and Labs:
Lab Results
03/17/25 06:10
03/17/25 06:10
Temp Pulse Resp BP Pulse Ox
98.6 F 84 16 116/77 99
03/17/25 11:05 03/17/25 13:48 03/17/25 11:05 03/17/25 13:48 03/17/25 11:05
Non-invasive Hgb result: 9.2
[2025-03-17 15:05] VITALS: BP 115/70
[2025-03-17] MEDS: PEPCID 20 MG PO (21:44)
[2025-03-17] MEDS: PRAVACHOL 40 MG PO (21:44)
[2025-03-17 22:59] VITALS: BP 138/80
[2025-03-18] MEDS: TESSALON PERLES 100 MG PO ×2 (03:48→10:45)
[2025-03-18] MEDS: ULTRAM 50 MG PO ×3 (03:48→20:10)
[2025-03-18] MEDS: ZOSYN 50 IV (03:49)
[2025-03-18 07:05] VITALS: BP 142/78
[2025-03-18] MEDS: TYLENOL 500 MG PO (07:39)
[2025-03-18] MEDS: ULTRAM 25 MG PO (07:39)
[2025-03-18] MEDS: COLACE PO ×2 (08:00→10:45)
[2025-03-18] MEDS: MIRALAX PO ×2 (08:00→10:46)
[2025-03-18] MEDS: NON-FORMULARY ITEM PO (08:00)
[2025-03-18] MEDS: PULMICORT INH (08:10)
[2025-03-18] MEDS: DUONEB INH (08:10)
[2025-03-18] MEDS: PULMICORT 0.5 MG INH ×2 (08:36→19:40)
[2025-03-18] MEDS: DUONEB 3 ML INH ×2 (08:36→19:40)
[2025-03-18] MEDS: RESTASIS 0.05% OPHTHALMIC EMULSION 1 DROPS OPHTH ×2 (10:42→20:09)
[2025-03-18] MEDS: ROBITUSSIN AC 5 ML PO ×3 (10:42→22:10)
[2025-03-18] MEDS: ZYRTEC 5 MG PO (10:43)
[2025-03-18] MEDS: FLOMAX 0.4 MG PO (10:44)
[2025-03-18] MEDS: MAGNESIUM OXIDE 400 MG PO (10:45)
[2025-03-18] MEDS: LEXAPRO 10 MG PO (10:45)
[2025-03-18] MEDS: TRICOR 48 MG PO (10:45)
[2025-03-18] MEDS: LASIX 20 MG PO (10:45)
[2025-03-18] MEDS: BUSPAR 30 MG PO (10:45)
[2025-03-18] MEDS: ASPIRIN 325 MG PO (10:46)
[2025-03-18] MEDS: PROTONIX 40 MG PO (10:46)
[2025-03-18] MEDS: TYLENOL 650 MG PO (10:46)
[2025-03-18] MEDS: NON-FORMULARY ITEM 1 CAP PO ×4 (10:47→22:10)
[2025-03-18 12:50] VITALS: BP 140/73; PULSE 77; O2SAT 98
--- NOTE | 2025-03-18 12:58 | W.PN.ORTHO ---
Today's Communication / Plan
-
79F POD #5 Left shoulder revision RTSA (humeral and glenoid components) performed on 03/13/[address] Villa.
- Appreciate medical team assistance with patient; continue treatment.
- NWB LUE in sling x 4-6 weeks from DOS.
- PT/OT.
- ASA 325mg once daily x 4 weeks for DVT prophylaxis.
- Hgb 8.1 --> 10.5 03/17/2025 s/p 1 unit PRBC; continue to monitor. Hgb today pending.
- Discharge planning; appreciate CM.
- Orthopedic surgery will continue to follow.
Assessment
.
Distal Motor Intact: Yes
Dressing:
Primaseal dressing intact with scant dried bloody drainage.
Elbow, wrist, and hand ROM intact. Shoulder ROM deferred.
Sensation is intact to light touch over the axillary nerve distribution.
Assessment:
POD #5 Left Reverse TSA Revision 03/13/[address] Villa
Plan
.
Surgery / Date: L Reverse TSA Revision Dr Villa 03/13/25
DVT Prophylaxis: Aspirin
Activity:
Out of bed.
PT/OT.
NWB LUE in sling.
Discharge Plan: SNF
Discharge Information:
Appreciate CM.
Subjective
.
.:
Patient resting comfortably.
Vital Signs and Labs
.
Vital Signs and Labs:
Temp Pulse Resp BP Pulse Ox
97.5 F 96 16 142/78 95
03/18/25 07:05 03/18/25 08:39 03/18/25 08:39 03/18/25 07:05 03/18/25 08:39
Non-invasive Hgb result: 9.2
[2025-03-18 13:44] VITALS: BP 110/59
[2025-03-18 15:05] VITALS: BP 117/64
--- NOTE | 2025-03-18 16:00 | W.PN.HOSP.TC ---
Today's Communication/Plan
-
Assessment / Plan
Assessment / Plan
General: No Apparent Distress, Comfortable and Conversant
HEENT: NormoCephalic, Moist mucous membranes, Atraumatic
Respiratory: Clear and Non Labored Respirations
Cardiac: S1/S2 and Regular Rhythm; No Rub or Gallop
GI: Soft, Non Tender, Non Distended and Normal Bowel Sounds
Musculoskeletal: Mild lower extremity edema, left upper extremity in sling
Skin: Chronic skin changes bilateral lower extremities
: NO Vasquez
Neuro: Awake, Alert, Nonfocal/grossly intact
Psych: Calm and cooperative
Ms. Ewing is a 79-year-old female with a medical history of Parkinson's disease, chronic nocturnal hypoxia, asthma, restrictive lung disease, hypertension, seizure disorder, and anxiety who was hospitalized following revision of her left shoulder
replacement. She was started on antibiotics following an aspiration event. She also had a significant drop in her hemoglobin for which she was transfused 1 unit PRBCs. She was also started on a fluid restriction for hyponatremia. Our hospitalist
service was consulted for medical management during her postoperative care.
Postoperative acute blood loss anemia:
- Hemoglobin dropped to 8.1, was transfused 1 unit PRBCs => hemoglobin 10.5, repeat labs today pending
- Monitor
Hypertension:
- According to med rec patient takes lisinopril 5 mg daily and propranolol 40 mg daily at home
- Currently holding lisinopril and propranolol due to borderline hypotension
- Patient was started on diltiazem for tachycardia which can also lower blood pressure
- Appears to have been started on midodrine during this admission which we will continue for now
- Diltiazem discontinued, also transitioned IV Lasix back to oral 20 mg daily for now (Lasix 20 mg every 48 hours or as needed at home)
- Continue to hold home lisinopril and propranolol, hopefully can discontinue midodrine, however in the meantime can continue midodrine with holding parameters (hold for SBP greater than 120), reasonable to discharge on this regimen and monitor in
the outpatient setting with adjustments as needed
Aspiration pneumonia:
- CT chest shows possible left lower lobe pneumonia, negative for PE
- Requiring minimal supplemental oxygen, 2 L at most otherwise on room air
- Now off antibiotics
- Aspiration precautions
- [employer] evaluation showing mild oropharyngeal dysphagia likely related to Parkinson's disease
- Recommendations are for regular solids, thin liquids via single sips with chin tuck, medications in pur�e
Acute urinary retention:
- Vasquez removed 03/17, voiding spontaneously
Hyponatremia:
- Mild with serum sodium 131, appears chronic per records
- Likely due to Lasix use, possibly side effect of escitalopram which should not be discontinued for mild hyponatremia alone
- Continue fluid restriction, convert Lasix back to home dose of 20 mg p.o. every 48 hours
- Baseline serum sodium appears to be 130-134
- Monitor
Parkinson's disease:
- Continue Sinemet
Chronic nocturnal hypoxia:
- Continue supplemental oxygen via nasal cannula at night/as needed
Asthma, restrictive lung disease:
- Continue scheduled nebulizers
Left shoulder replacement revision:
- Status post OR with Ortho 03/13/2025 reverse total shoulder arthroplasty, tolerated procedure well
- Postoperative care per Ortho team
- On full-strength aspirin daily
Anxiety and depression:
- Continue home buspirone, escitalopram, doxepin, and clonazepam
DVT prophylaxis: Full-strength aspirin per Ortho
Anticipated Discharge: Within 24 hours
Subjective/Interval History
-
Date of Service: March 18, 2025
Patient was seen and examined at bedside this morning. Reports feeling well but having multiple soft stools.
Objective Data
-
Labs:
Laboratory Results
03/18/25
14:31
WBC Pending
Hgb Pending
Hct Pending
Plt Count Pending
Sodium Pending
Potassium Pending
Chloride Pending
Carbon Dioxide Pending
BUN Pending
Creatinine Pending
Glucose Pending
Calcium Pending
Vital Signs:
Vital Signs
Temp Pulse Resp BP Pulse Ox
98.1 F 84 16 110/59 97
03/18/25 13:44 03/18/25 13:44 03/18/25 13:44 03/18/25 13:44 03/18/25 13:44
I&O
03/17/25 03/18/25 03/19/25
06:59 06:59 06:59
Intake Total 750 / 750 1340 / 1340
Output Total 3450 / 3450
Balance -2700 / -2700 1340 / 1340
Review of Systems
-
History Source: Patient
All other systems: Reviewed and negative
Abdomen/GI: Reports Other (Soft stools)
Physical Exam
-
General: No Apparent Distress
[2025-03-18 16:27] LABS: Hematocrit 30.3 % (37.0-47.0); Hemoglobin 10.3 g/dL (12.0-16.0); Mean Corp Hgb Conc. 34.0 g/dL (33.0-37.0); Mean Corpuscular Volume 97.1 fL (81.0-99.0); Nucleated Red Blood Cells % 0 %; Platelet Count 278 10^3/uL (130-400); Red Cell Dist. Width 14.9 % (11.5-14.5)
[2025-03-18 16:36] LABS: Blood Urea Nitrogen 52 mg/dl (7-17); Calcium 9.5 mg/dl (8.4-10.2); Carbon Dioxide 33 mmol/L (22-30); Chloride 89 mmol/L (98-107); Estimated Creatinine Clearance 31 ml/min; Glucose 123 mg/dl (70-99); Potassium 4.1 mmol/L (3.5-5.1); Sodium 130 mmol/L (135-145); eGFR 46.33
[2025-03-18 18:11] VITALS: BP 129/61
[2025-03-18] MEDS: COLACE 100 MG PO (20:09)
[2025-03-18] MEDS: PEPCID 20 MG PO (22:10)
[2025-03-18] MEDS: PRAVACHOL 40 MG PO (22:10)
[2025-03-18 23:05] VITALS: BP 144/81
[2025-03-19 03:16] VITALS: BP 155/85
[2025-03-19] MEDS: ULTRAM 50 MG PO ×2 (06:33→17:25)
[2025-03-19 07:05] VITALS: BP 147/81
[2025-03-19] MEDS: COLACE PO ×2 (07:58→20:29)
[2025-03-19] MEDS: MIRALAX PO (07:58)
[2025-03-19] MEDS: PULMICORT 0.5 MG INH ×2 (08:09→19:57)
[2025-03-19] MEDS: DUONEB 3 ML INH ×2 (08:09→19:57)
[2025-03-19] MEDS: TYLENOL 650 MG PO (08:42)
[2025-03-19] MEDS: BUSPAR 30 MG PO (08:43)
[2025-03-19] MEDS: PROTONIX 40 MG PO (08:43)
[2025-03-19] MEDS: FLOMAX 0.4 MG PO (08:43)
[2025-03-19] MEDS: ZYRTEC 5 MG PO (08:44)
[2025-03-19] MEDS: TRICOR 48 MG PO (08:44)
[2025-03-19] MEDS: ROBITUSSIN AC 5 ML PO ×3 (08:44→21:06)
[2025-03-19] MEDS: LASIX 20 MG PO (08:44)
[2025-03-19] MEDS: RESTASIS 0.05% OPHTHALMIC EMULSION 1 DROPS OPHTH ×2 (08:44→20:32)
[2025-03-19] MEDS: MAGNESIUM OXIDE 400 MG PO (08:44)
[2025-03-19] MEDS: LEXAPRO 10 MG PO (08:44)
[2025-03-19] MEDS: ASPIRIN 325 MG PO (08:44)
[2025-03-19] MEDS: NON-FORMULARY ITEM 1 CAP PO ×5 (08:45→21:06)
[2025-03-19 09:36] LABS: Hematocrit 31.4 % (37.0-47.0); Hemoglobin 10.8 g/dL (12.0-16.0); Mean Corp Hgb Conc. 34.4 g/dL (33.0-37.0); Mean Corpuscular Volume 99.1 fL (81.0-99.0); Nucleated Red Blood Cells % 0 %; Platelet Count 296 10^3/uL (130-400); Red Cell Dist. Width 14.6 % (11.5-14.5)
[2025-03-19 09:59] LABS: Blood Urea Nitrogen 47 mg/dl (7-17); Calcium 10.3 mg/dl (8.4-10.2); Carbon Dioxide 30 mmol/L (22-30); Chloride 95 mmol/L (98-107); Estimated Creatinine Clearance 41 ml/min; Glucose 74 mg/dl (70-99); Potassium 4.2 mmol/L (3.5-5.1); Sodium 133 mmol/L (135-145); eGFR > 60.00
--- NOTE | 2025-03-19 10:04 | W.PN.HOSP.TC ---
Addendum entered and electronically signed by Theresa Patel MD 03/19/25 12:52:
# ALECIA, resolved
Original Note:
Today's Communication/Plan
-
see A/P
Assessment / Plan
Assessment / Plan
HPI:79-year-old female with medical history of Parkinson's disease, chronic nocturnal hypoxia, asthma, restrictive lung disease, hypertension, seizure disorder, and anxiety; who was hospitalized following revision of her left shoulder replacement.
She was started on antibiotics following an aspiration event. She also had a significant drop in her hemoglobin for which she received 1 unit PRBCs. She was also started on a fluid restriction for hyponatremia. Our hospitalist service was
consulted for medical management during her postoperative care.
A/P:
# Postoperative acute blood loss anemia:
Hemoglobin dropped to 8.1, was transfused 1 unit PRBCs, hemoglobin 10.8 today
# Hypertension
According to med rec patient takes lisinopril 5 mg daily and propranolol 40 mg daily at home. 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
s/p diltiazem for tachycardia
Pt was started with midodrine with holding parameter for presumed hypotension, does not appear this is needed much longer- observe off midodrine
# Aspiration pneumonia
CT chest shows possible left lower lobe pneumonia, negative for PE
Requiring minimal supplemental oxygen at 2 L at most, otherwise on room air
Now off antibiotics
Aspiration precautions
STRUCTURAL TECHNICIAN evaluation showing mild oropharyngeal dysphagia likely related to Parkinson's disease
Recommendations are for regular solids, thin liquids via single sips with chin tuck, medications in pur�e
# Acute urinary retention, resolved
Vasquez removed 03/17, voiding spontaneously
# Hyponatremia, Mild
Sodium level 133 today
Continue fluid restriction
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
# Parkinson's disease
Continue Sinemet
# Chronic nocturnal hypoxia:
Continue supplemental oxygen via nasal cannula at night/as needed
# Asthma, restrictive lung disease:
Continue scheduled nebulizers
# Left shoulder replacement revision:
Status post OR with Ortho 03/13/2025 reverse total shoulder arthroplasty, tolerated procedure well
Postoperative care per Ortho team
On full-strength aspirin daily
# Anxiety and depression
Continue home buspirone, escitalopram, doxepin, and clonazepam
mood stable
DVT prophylaxis: Full-strength aspirin per Ortho
Dispo: acute rehab
DW RN
Anticipated Discharge: Within 24 hours
Subjective/Interval History
-
Date of Service: March 19, 2025
Objective Data
-
Labs:
Laboratory Results
03/19/25
08:15
WBC 12.3 H
Hgb 10.8 L
Hct 31.4 L
Plt Count 296
Sodium 133 L
Potassium 4.2
Chloride 95 L
Carbon Dioxide 30
BUN 47 H
Creatinine 0.9
Glucose 74
Calcium 10.3 H
Vital Signs:
Vital Signs
Temp Pulse Resp BP Pulse Ox
36.4 C 94 16 147/81 97
03/19/25 07:05 03/19/25 08:11 03/19/25 08:11 03/19/25 07:05 03/19/25 08:11
I&O
03/18/25 03/19/25 03/20/25
06:59 06:59 06:59
Intake Total 1340 / 1340 480 / 480
Balance 1340 / 1340 480 / 480
Review of Systems
-
History Source: Patient
All other systems: Reviewed and negative
Physical Exam
-
General: Well Developed, Well Nourished, Comfortable, Respiratory Distress (chronic), Conversant and Appears Chronically Ill
HEENT: Normocephalic and Oxygen (2L NC)
Respiratory: Clear to Auscultation and Non Labored Respirations; Negative Accessory Resp Muscle Use
Cardiac: Regular Rhythm and S1/S2
GI: Soft, Nontender and Nondistended
Musculoskeletal: Other (LUE in sling )
Skin: Warm and Dry
Neuro: Awake and Alert
Psych: Calm and Intact Judgement/Insight
Data Reviewed
-
Labs: Labs Reviewed by me
--- NOTE | 2025-03-19 10:45 | CM ---
Addendum entered by [place] Lees 03/19/25 15:49:
Patient accepted for transfer to SNF; [facility] today. Please call report to [phone]/fax [phone]. CM updated physician and will review with patient and .
Addendum entered by [place] Lees 03/19/25 14:00:
CM spent a long time with several different offices but finally was told that patient auth had to be restarted with fax to [phone]/ [phone] and email Haider [email or web address]. CM will restart auth at this time.
Plan; SNF; [facility] pending auth
Original Note:
CM spoke at length with admissions at [facility] and requested updated review due to current auth and PA's review of patient. CM will continue to follow for discharge planning needs.
Plan; [facility] vs SNF
--- NOTE | 2025-03-19 12:12 | PN.CDI ---
CDI
- -
CDI:
Physician Documentation Request
Admit Date: 03/13/25 09:35
Dear Doctor Jorge,
Clinical Indicators:
Patient admitted for revision of her left shoulder replacement.
Lasix IV x doses (03/16, 03/17)
Cr/GFR trend:
03/17/25 03/18/25 03/19/25
06:10 16:15 08:15
Creatinine 0.9 1.2 H 0.9
eGFR > 60.00 46.33 > 60.00
Please clarify which of the following accurately represents the patient's renal status:
ALECIA, resolved
Elevated creatinine only
Other, please specify
Criteria for ALECIA*
1 Increase in serum creatinine by > or = to 0.3 mg/dL (> or = to 26.5 micromol/L) within 48 hours, OR
2 Increase in serum creatinine to > or = to 1.5 times baseline, which is known or presumed to have occurred within 7 days, OR
3 Urine volume < 0.5 nL/kg/hour for six hours
Use of terms such as suspected, likely, concern for, or probable (associated with a specific diagnosis that is being evaluated, monitored, or treated as if it exists) are acceptable and can be coded in the inpatient setting, when documented at the
time of discharge.
Thank you,
MAX Bustillo RN
CDI Specialist
available via tiger text
Please use your independent medical judgment in providing your response.
*Source: Kidney Disease: Improving Global Outcomes (KDIGO) 2012
--- NOTE | 2025-03-19 14:37 | CM ---
Authorization for skilled rehab at [facility] initiated in [facility].
Clinicals uploaded.
Pended reference # [id number]
Await determination.
[2025-03-19 15:05] VITALS: BP 163/74
--- NOTE | 2025-03-19 15:05 | W.PN.ORTHO ---
Today's Communication / Plan
-
d/c
Assessment
.
Distal Motor Intact: Yes
Dressing:
Clean, dry and intact.
Assessment:
RLL PNA-s/p Zosyn lungs CTA with cough improved no exudate-continue aspiration precautions-s/p speech eval- soft bite sized diet, thins--continue PPI
SOB w/ tachypnea and tachycardia am POD#2--chest discomfort on inspiration+intense calf pain w/ palpation--resolved
--CT/PE chest and venous duplex negative for clot
--tachycardia most likely exacerbated by nebs-d/c propanolol given asthma and change to Diltiazem
--EKG w/ possible anterior infarct reviewed Dr Hernandez-cardiology and at baseline with poor R wave progression
--troponin mildly elevated-repeated [id number] trends higher in setting of asthma exacerbation-no CP
--BNP trending slightly higher then her typical range-change home Lasix to 20mg IV dosing and continue Midodrine to avoid orthostasis
Asthma-severe persistent
Remote tobacco
Restrictive lung disease
Chronic nocturnal hypoxemia req O2L O2 at hs
PEARSON
--incentive spirometry
--standing order nebs
--O2 at hs
--IV Decadron for inflammation and lung perfusion
--minimize opioids to avoid respiratory suppression
--abx OP Rx ppx
Anemia
--iron and B12 stores good range
--significant drop in hgb
--transfuse 1UPRBCs-heme test stool given colitis
--hgb improved with no hemodynamic compromise nor incisional bleeding
IBS-D
hx microscopic colitis
GERD
--laxatives prn basis
--PPI GI ppx
Hyponatremia
---Lasix + fluid restrict-check urine sodium/osmolality--BMPstable-sodium corrected
Hx ALECIA pre-op in setting of Meloxicam
--set up w/ nephrology pre-op
--no NSAIDs/Morrow II, renally dose all meds, adequate hydration, BP control
--follow BMP
Parkinson's/balance and gait disturbance
--fall precautions
Plan
.
Surgery / Date: L Reverse TSA Revision Dr Villa 03/13/25
DVT Prophylaxis: Aspirin
Activity:
Out of bed.
PT/OT
Discharge Plan: SNF
Subjective
.
.:
Patient resting comfortably.
Vital Signs and Labs
.
Vital Signs and Labs:
Lab Results
03/19/25 08:15
03/19/25 08:15
Temp Pulse Resp BP Pulse Ox
97.6 F 94 16 147/81 97
03/19/25 07:05 03/19/25 08:11 03/19/25 08:11 03/19/25 07:05 03/19/25 08:11
Non-invasive Hgb result: 11.3
Physical Exam
-
HEENT: No pallor, cyanosis, or jaundice. Throat clear.
NECK: Supple. No JVD.
RESPIRATORY: Lungs clear to auscultation.
CVS: S1, S2 normal. RRR.� No murmur, rub or gallop.
ABDOMEN: Soft, non-tender. No distension. BS+/normal.
EXTREMITIES: strength equal, no calf pain with palpation
FUNDRAISING COORDINATOR: AOx3. No focal deficits. longitudinal float operator grossly intact
--- NOTE | 2025-03-19 20:31 | PTCARENOTE ---
Report given to Deidra at [facility]. Pt pickup time 2029. Care ongoing.
[2025-03-19] MEDS: PRAVACHOL 40 MG PO (21:06)
[2025-03-19] MEDS: PEPCID 20 MG PO (21:06)
[2025-03-19 21:18] VITALS: BP 142/83
== END 2025-03-19 21:31 | DRG 483 ==
LOC: 2 SOUTH 09:35
PROVIDERS: Internal Medicine; Nurse Practitioner Gerontology; Physician Assistant Medical; ADMITTING PHYSICIAN Specialist; FAMILY PHYSICIAN Nurse Practitioner Adult Health; OTHER PHYSICIAN Internal Medicine
PROC: 0RRK00Z Replacement of Left Shoulder Joint with Reverse Ball and Socket Synthetic Substitute, Open Approach (ICD-10-PCS; 2025-03-13)
PROC: 0RPK0JZ Removal of Synthetic Substitute from Left Shoulder Joint, Open Approach (ICD-10-PCS; 2025-03-13)
PROC: 30233N1 Transfusion of Nonautologous Red Blood Cells into Peripheral Vein, Percutaneous Approach (ICD-10-PCS; 2025-03-16)
DX: T84.038A Mechanical loosening of other internal prosthetic joint, initial encounter (principal); J69.0 Pneumonitis due to inhalation of food and vomit; J96.11 Chronic respiratory failure with hypoxia; N17.9 Acute kidney failure, unspecified; E87.1 Hypo-osmolality and hyponatremia; D62 Acute posthemorrhagic anemia; F13.20 Sedative, hypnotic or anxiolytic dependence, uncomplicated; E66.9 Obesity, unspecified; Z68.29 Body mass index [BMI] 29.0-29.9, adult; G20.A1 Parkinson's disease without dyskinesia, without mention of fluctuations; R29.6 Repeated falls; E55.9 Vitamin D deficiency, unspecified; M85.88 Other specified disorders of bone density and structure, other site; I10 Essential (primary) hypertension; E78.5 Hyperlipidemia, unspecified; K58.0 Irritable bowel syndrome with diarrhea; J98.4 Other disorders of lung; G40.909 Epilepsy, unspecified, not intractable, without status epilepticus; F32.A Depression, unspecified; F41.9 Anxiety disorder, unspecified; Y83.1 Surgical operation with implant of artificial internal device as the cause of abnormal reaction of the patient, or of later complication, without mention of misadventure at the time of the procedure; Y79.2 Prosthetic and other implants, materials and accessory orthopedic devices associated with adverse incidents; D64.9 Anemia, unspecified; G43.909 Migraine, unspecified, not intractable, without status migrainosus; J45.50 Severe persistent asthma, uncomplicated; G62.9 Polyneuropathy, unspecified; M21.372 Foot drop, left foot; M21.371 Foot drop, right foot; N99.89 Other postprocedural complications and disorders of genitourinary system; K21.9 Gastro-esophageal reflux disease without esophagitis; Z79.899 Other long term (current) drug therapy; Z87.440 Personal history of urinary (tract) infections; Z87.891 Personal history of nicotine dependence; Z99.81 Dependence on supplemental oxygen; Z96.612 Presence of left artificial shoulder joint; Z96.611 Presence of right artificial shoulder joint; Z96.653 Presence of artificial knee joint, bilateral
CPT/HCPCS: 36415; 71275; 73020; 80048; 80053; 81003; 81015; 82306; 82607; 82728; 82746; 83036; 83540; 83550; 83880; 84300; 84484; 85025; 85027; 86850; 86900; 86901; 86920; 87070; 87075; 87086; 87147; 87176; 87205; 92526; 92612; 93005; 93970; 94640; 97110; 97116; 97163; 97167; 97530; 97535; C1776; P9058; Q9967

== ENCOUNTER → 2025-03-20 12:45 | Outpatient (REF) | payer OTHER, SELFPAY ==
[2025-03-20 13:07] LABS: Hematocrit 30.1 % (37.0-47.0); Hemoglobin 10.0 g/dL (12.0-16.0); Mean Corp Hgb Conc. 33.2 g/dL (33.0-37.0); Mean Corpuscular Volume 99.3 fL (81.0-99.0); Nucleated Red Blood Cells % 0 %; Platelet Count 314 10^3/uL (130-400); Red Cell Dist. Width 14.3 % (11.5-14.5)
[2025-03-20 13:35] LABS: Blood Urea Nitrogen 39 mg/dl (7-17); Calcium 9.7 mg/dl (8.4-10.2); Carbon Dioxide 29 mmol/L (22-30); Chloride 93 mmol/L (98-107); Glucose 98 mg/dl (70-99); Potassium 4.2 mmol/L (3.5-5.1); Sodium 130 mmol/L (135-145); eGFR 57.66
== END ==
LOC: OLABP 12:45
PROVIDERS: ATTENDING PHYSICIAN Family Medicine
DX: N18.31 Chronic kidney disease, stage 3a (principal); D62 Acute posthemorrhagic anemia; Z47.1 Aftercare following joint replacement surgery; R26.2 Difficulty in walking, not elsewhere classified; E78.5 Hyperlipidemia, unspecified; G20.C Parkinsonism, unspecified; I10 Essential (primary) hypertension; G40.909 Epilepsy, unspecified, not intractable, without status epilepticus; G62.9 Polyneuropathy, unspecified; I12.9 Hypertensive chronic kidney disease with stage 1 through stage 4 chronic kidney disease, or unspecified chronic kidney disease; J45.50 Severe persistent asthma, uncomplicated; J69.0 Pneumonitis due to inhalation of food and vomit; J84.9 Interstitial pulmonary disease, unspecified; K52.9 Noninfective gastroenteritis and colitis, unspecified
CPT/HCPCS: 80048; 85025

== ENCOUNTER → 2025-03-21 10:38 | Outpatient (REF) | payer OTHER, SELFPAY ==
[2025-03-21 12:12] LABS: Hematocrit 29.8 % (37.0-47.0); Hemoglobin 10.0 g/dL (12.0-16.0); Mean Corp Hgb Conc. 33.6 g/dL (33.0-37.0); Mean Corpuscular Volume 99.3 fL (81.0-99.0); Nucleated Red Blood Cells % 0 %; Platelet Count 318 10^3/uL (130-400); Red Cell Dist. Width 14.1 % (11.5-14.5)
[2025-03-21 12:19] LABS: Blood Urea Nitrogen 31 mg/dl (7-17); Calcium 10.4 mg/dl (8.4-10.2); Carbon Dioxide 29 mmol/L (22-30); Chloride 97 mmol/L (98-107); Glucose 128 mg/dl (70-99); Potassium 4.7 mmol/L (3.5-5.1); Sodium 132 mmol/L (135-145); eGFR > 60.00
== END ==
LOC: OLABP 10:38
PROVIDERS: ATTENDING PHYSICIAN Family Medicine
DX: D62 Acute posthemorrhagic anemia (principal); E78.5 Hyperlipidemia, unspecified; G20.C Parkinsonism, unspecified; G40.909 Epilepsy, unspecified, not intractable, without status epilepticus; G92.9 Unspecified toxic encephalopathy; I10 Essential (primary) hypertension; I12.9 Hypertensive chronic kidney disease with stage 1 through stage 4 chronic kidney disease, or unspecified chronic kidney disease; J45.50 Severe persistent asthma, uncomplicated; J69.0 Pneumonitis due to inhalation of food and vomit; J84.9 Interstitial pulmonary disease, unspecified; K52.9 Noninfective gastroenteritis and colitis, unspecified; N18.31 Chronic kidney disease, stage 3a; R26.2 Difficulty in walking, not elsewhere classified; Z96.612 Presence of left artificial shoulder joint
CPT/HCPCS: 36415; 80048; 85025

== ENCOUNTER → 2025-03-23 10:45 | Outpatient (REF) | payer OTHER, SELFPAY ==
[2025-03-23 11:40] LABS: Blood Urea Nitrogen 51 mg/dl (7-17); Calcium 9.7 mg/dl (8.4-10.2); Carbon Dioxide 26 mmol/L (22-30); Chloride 101 mmol/L (98-107); Glucose 102 mg/dl (70-99); Potassium 5.4 mmol/L (3.5-5.1); Sodium 133 mmol/L (135-145); eGFR 51.43
[2025-03-23 11:41] LABS: Hematocrit 29.3 % (37.0-47.0); Hemoglobin 9.7 g/dL (12.0-16.0); Mean Corp Hgb Conc. 33.1 g/dL (33.0-37.0); Mean Corpuscular Volume 101.4 fL (81.0-99.0); Nucleated Red Blood Cells % 0 %; Platelet Count 389 10^3/uL (130-400); Red Cell Dist. Width 13.9 % (11.5-14.5)
== END ==
LOC: OLABP 10:45
PROVIDERS: ATTENDING PHYSICIAN Family Medicine
DX: D62 Acute posthemorrhagic anemia (principal); E78.5 Hyperlipidemia, unspecified; G20.C Parkinsonism, unspecified; G40.909 Epilepsy, unspecified, not intractable, without status epilepticus; G62.9 Polyneuropathy, unspecified; I12.9 Hypertensive chronic kidney disease with stage 1 through stage 4 chronic kidney disease, or unspecified chronic kidney disease; J45.50 Severe persistent asthma, uncomplicated; J69.0 Pneumonitis due to inhalation of food and vomit; J84.9 Interstitial pulmonary disease, unspecified; K52.9 Noninfective gastroenteritis and colitis, unspecified; N18.31 Chronic kidney disease, stage 3a; R26.2 Difficulty in walking, not elsewhere classified; Z96.612 Presence of left artificial shoulder joint
CPT/HCPCS: 36415; 80048; 85025

== ENCOUNTER → 2025-03-27 10:45 | Outpatient (REF) | payer OTHER, SELFPAY ==
[2025-03-27 11:22] LABS: Hematocrit 31.8 % (37.0-47.0); Hemoglobin 10.8 g/dL (12.0-16.0); Mean Corp Hgb Conc. 34.0 g/dL (33.0-37.0); Mean Corpuscular Volume 99.7 fL (81.0-99.0); Nucleated Red Blood Cells % 0 %; Platelet Count 371 10^3/uL (130-400); Red Cell Dist. Width 13.5 % (11.5-14.5)
[2025-03-27 11:27] LABS: Blood Urea Nitrogen 45 mg/dl (7-17); Calcium 9.5 mg/dl (8.4-10.2); Carbon Dioxide 25 mmol/L (22-30); Chloride 98 mmol/L (98-107); Glucose 93 mg/dl (70-99); Potassium 5.7 mmol/L (3.5-5.1); Sodium 129 mmol/L (135-145); eGFR > 60.00
== END ==
LOC: OLABP 10:45
PROVIDERS: ATTENDING PHYSICIAN Family Medicine
DX: K52.9 Noninfective gastroenteritis and colitis, unspecified (principal); J84.9 Interstitial pulmonary disease, unspecified; Z47.1 Aftercare following joint replacement surgery; D62 Acute posthemorrhagic anemia; E78.5 Hyperlipidemia, unspecified; G20.C Parkinsonism, unspecified; G40.909 Epilepsy, unspecified, not intractable, without status epilepticus; G62.9 Polyneuropathy, unspecified; I10 Essential (primary) hypertension; I12.9 Hypertensive chronic kidney disease with stage 1 through stage 4 chronic kidney disease, or unspecified chronic kidney disease; J45.50 Severe persistent asthma, uncomplicated; J69.0 Pneumonitis due to inhalation of food and vomit; N18.31 Chronic kidney disease, stage 3a; R26.2 Difficulty in walking, not elsewhere classified; Z96.612 Presence of left artificial shoulder joint
CPT/HCPCS: 36415; 80048; 85025

== ENCOUNTER → 2025-03-28 11:28 | Outpatient (REF) | payer OTHER, SELFPAY ==
[2025-03-28 13:10] LABS: Blood Urea Nitrogen 41 mg/dl (7-17); Calcium 9.3 mg/dl (8.4-10.2); Carbon Dioxide 26 mmol/L (22-30); Chloride 97 mmol/L (98-107); Glucose 87 mg/dl (70-99); Potassium 5.2 mmol/L (3.5-5.1); Sodium 128 mmol/L (135-145); eGFR > 60.00
== END ==
LOC: OLABP 11:28
PROVIDERS: ATTENDING PHYSICIAN Family Medicine
DX: Z47.1 Aftercare following joint replacement surgery (principal); D62 Acute posthemorrhagic anemia; E78.5 Hyperlipidemia, unspecified; G20.C Parkinsonism, unspecified; G40.909 Epilepsy, unspecified, not intractable, without status epilepticus; G62.9 Polyneuropathy, unspecified; I10 Essential (primary) hypertension; I12.9 Hypertensive chronic kidney disease with stage 1 through stage 4 chronic kidney disease, or unspecified chronic kidney disease; J45.50 Severe persistent asthma, uncomplicated; J69.0 Pneumonitis due to inhalation of food and vomit; J84.9 Interstitial pulmonary disease, unspecified; K52.9 Noninfective gastroenteritis and colitis, unspecified; N18.31 Chronic kidney disease, stage 3a; R26.2 Difficulty in walking, not elsewhere classified; Z96.612 Presence of left artificial shoulder joint
CPT/HCPCS: 36415; 80048